=== PATIENT | male | born 1995 | race Caucasian/White ===

== ENCOUNTER → 2017-11-26 | Outpatient (CLI) | payer BC, OTHER | LOC: BMCIMAGING 16:18 | PROVIDERS: ATTEND Family Medicine | DX: S69.92XA Unspecified injury of left wrist, hand and finger(s), initial encounter (principal) ==

== ENCOUNTER 2019-01-21 20:52 | Emergency (ER) | payer OTHER ==
--- NOTE | 2019-01-21 21:55 | EDPHY ---
H & P Stated Complaint: L ankle cut from 3wks ago, on antibiotics, infection gtting worse Time Seen by Provider: 01/21/19 21:51 HPI/ROS: CHIEF COMPLAINT: Wound infection HISTORY OF PRESENT ILLNESS: Patient is a 24-year-old man who comes to the emergency department for medication refills and wound evaluation. He was in the [facility] swimming and [place]. He got infected. He received antibiotics there in the [facility] and a small clinic and then once again when he return to [place]. For the last 10 days he has been on Augmentin and doxycycline. He states that it is improved dramatically but it is not yet completely better. He still has a 2 cm round scab to the medial malleolus with minimal surrounding erythema. His friends dad who is a physician saw it today and told him he needed to come be evaluated. He has been afebrile. He is ambulating without difficulty or pain. No drainage or swelling. Severity: Moderate Modifying factors: Significant improvement with antibiotics REVIEW OF SYSTEMS: Constitutional: denies: chills, fever, recent illness, recent injury EENTM: denies: blurred vision, double vision, nose congestion Respiratory: denies: cough, shortness of breath Cardiac: denies: chest pain, irregular heart rate, lightheadedness, palpitations Gastrointestinal/Abdominal: denies: abdominal pain, diarrhea, nausea, vomiting, blood streaked stools Genitourinary: denies: dysuria, frequency, hematuria, pain Musculoskeletal: denies: joint pain, muscle pain Skin: See HPI Neurological: denies: headache, numbness, paresthesia, tingling, dizziness, weakness Hematologic/Lymphatic: denies: blood clots, easy bleeding, easy bruising Immunologic/allergic: denies: HIV/AIDS, transplant 10 systems reviewed and negative except as noted EXAM: GENERAL: Well-appearing, well-nourished and in no acute distress. HEAD: Atraumatic, normocephalic. EYES: Pupils equal round and reactive to light, extraocular movements intact, sclera anicteric, conjunctiva are normal. ENT: TMs normal, nares patent, oropharynx clear without exudates. Moist mucous membranes. NECK: Normal range of motion, supple without lymphadenopathy or JVD. LUNGS: Breath sounds clear to auscultation bilaterally and equal. No wheezes rales or rhonchi. HEART: Regular rate and rhythm without murmurs, rubs or gallops. ABDOMEN: Soft, nontender, normoactive bowel sounds. No guarding, no rebound. No masses appreciated. BACK: No CVA tenderness, no spinal tenderness, step-offs or deformities EXTREMITIES: Normal range of motion, no pitting or edema. No clubbing or cyanosis. NEUROLOGICAL: Cranial nerves II through XII grossly intact. Normal speech, normal gait. 5/5 strength, normal movement in all extremities, normal sensation , normal reflexes PSYCH: Normal mood, normal affect. SKIN: See HPI Source: Patient Exam Limitations: No limitations - Personal History Current Tetanus Diphtheria and Acellular Pertussis (TDAP): Yes - Medical/Surgical History Hx Asthma: No Hx Chronic Respiratory Disease: No Hx Diabetes: No Hx Cardiac Disease: No Hx Renal Disease: No Hx Cirrhosis: No Hx Alcoholism: No Hx HIV/AIDS: No Hx Splenectomy or Spleen Trauma: No Other PMH: Denies - Family History Significant Family History: No pertinent family hx - Social History Smoking Status: Unknown if ever smoked Alcohol Use: None Constitutional: Initial Vital Signs Temperature (C) 36.8 C 01/21/19 20:55 Heart Rate 66 01/21/19 20:55 Respiratory Rate 18 01/21/19 20:55 Blood Pressure 115/48 L 01/21/19 20:55 O2 Sat (%) 97 01/21/19 20:55 O2 Delivery Mode Room Air Allergies/Adverse Reactions: No Known Allergies Allergy (Unverified 01/21/19 20:55) Home Medications: Medication Instructions Recorded Amoxicillin/Clavulanate Pot 875 mg PO BID #20 tab 01/21/19 [Augmentin 875Mg] Augmentin 875 MG TAB (*) 01/21/19 Doxycycline Hyclate 01/21/19 Doxycycline Hyclate [Vibramycin] 100 mg PO BID #20 cap 01/21/19 Medical Decision Making ED Course/Re-evaluation: The patient's wound has been improving. It does not look bad now. There is slight erythema around the scab. No drainage or fluctuance or purulence. I do think he would benefit from a longer course of antibiotics and will add another 10 days. I will have him follow up with the ID clinic in the next 24-48 hours. He has no systemic symptoms. He is nontoxic-appearing. He is happy with this plan and declines further workup or treatment this time. Differential Diagnosis: Partial list of the Differential diagnosis considered include but were not limited to; wound infection, cellulitis and although unlikely based on the history and physical exam, I also considered abscess, osteomyelitis, joint infection. I discussed these differential diagnoses and the plan with the patient as well as the usual and expected course. The patient understands that the diagnosis is provisional and that in medicine we are not always correct and that further workup is often warranted. Usual and customary warnings were given. All of the patient's questions were answered. The patient was instructed to return to the emergency department should the symptoms at all worsen or return, otherwise to followup with the physician as we discussed. Departure - Departure Disposition: Home, Routine, Self-Care Clinical Impression: Wound infection Condition: Fair Instructions: Wound Infection (ED) Referrals: NONE *PRIMARY CARE P,. [Primary Care Provider] - As per Instructions William Alvarez MD [Medical Doctor] - 1-2 days without fail Prescriptions: Amoxicillin/Clavulanate Pot [Augmentin 875Mg] 875 mg PO BID #20 tab Doxycycline Hyclate [Vibramycin] 100 mg PO BID #20 cap
[2019-01-21 22:11] VITALS: BP 125/71
== END 2019-01-21 22:10 | disposition home or self-care (01) ==
DX: L08.9 Local infection of the skin and subcutaneous tissue, unspecified (principal)